=== PATIENT | female | born 1975 | race Caucasian/White ===

== ENCOUNTER 2023-08-03 18:36 | Emergency (ER) | payer OTHER ==
[~2023-08-03] VITALS: Ht 162.6 cm; Wt 86.0 kg
[2023-08-03] MEDS ORDERED: HYDR50TA70 (18:54)
[2023-08-03] MEDS ORDERED: PANT40TA29 (18:54)
[2023-08-03] MEDS ORDERED: CETI-24 (18:54)
[2023-08-03] MEDS ORDERED: ONDA4TAB6 (18:54)
[2023-08-03] MEDS ORDERED: DICY20TA20 (18:54)
[2023-08-03] MEDS ORDERED: TRAM50TA2 (18:54)
[2023-08-03 20:21] LABS: BASO # 0.1 10^3/uL (0.0-0.2); BASO % 0.8 % (0.0-1.0); EOS # 0.4 10^3/uL (0.0-0.5); EOS % 5.6 % (0.0-3.0); HEMATOCRIT 38.4 % (36.0-47.0); HEMOGLOBIN 13.1 g/dl (12.0-15.5); LYMPH # 2.6 10^3/uL (1.5-5.0); LYMPH % 41.3 % (24.0-44.0); MEAN CORPUSCULAR HEMOGLOBIN 29.4 pg (27.0-33.0); MEAN CORPUSCULAR HGB CONC 34.1 g/dl (32.0-36.5); MEAN CORPUSCULAR VOLUME 86.1 fl (80.0-96.0); MONO # 0.4 10^3/uL (0.0-0.8); MONO % 6.8 % (2.0-8.0); NEUTROPHILS # 2.8 10^3/uL (1.5-8.5); NEUTROPHILS % 45.3 % (36.0-66.0); PLATELET COUNT, AUTOMATED 224 10^3/uL (150-450); RED BLOOD COUNT 4.46 10^6/uL (4.00-5.40); WHITE BLOOD COUNT 6.2 10^3/uL (4.0-10.0)
[2023-08-03] MEDS ORDERED: ISOVUE-370 76% 100ML VIAL As Ordered ONE (20:32)
[2023-08-03 20:33] LABS: INR 1.11; PARTIAL THROMBOPLASTIN TIME 33.4 SECONDS (24.8-34.2)
[2023-08-03] MEDS ORDERED: NS 1,000 ML IV SCH (20:40)
[2023-08-03 20:45] LABS: CK-MB VALUE MASS < 1.0 NG/ML (<3.6)
[2023-08-03 20:46] LABS: ALBUMIN 3.9 G/DL (3.2-5.2); BILIRUBIN,DIRECT 0.2 MG/DL (<0.4); BILIRUBIN,TOTAL 0.7 MG/DL (0.3-1.2); RSV AMPLIFICATION NEGATIVE (NEGATIVE); TOTAL PROTEIN 6.6 G/DL (5.7-8.2)
[2023-08-03 20:47] LABS: BLOOD UREA NITROGEN 6 MG/DL (9-23); CALCIUM LEVEL 9.5 MG/DL (8.5-10.1); CARBON DIOXIDE LEVEL 26 MMOL/L (20-31); CHLORIDE LEVEL 109 MMOL/L (98-107); CREATININE FOR GFR 0.69 MG/DL (0.55-1.30); GLOMERULAR FILTRATION RATE > 60.0 (>58); GLUCOSE, FASTING 83 MG/DL (60-100); POTASSIUM SERUM 3.4 MMOL/L (3.5-5.1); SODIUM LEVEL 146 MMOL/L (136-145)
[2023-08-03 20:48] LABS: CPK CREATINE PHOSPHOKINASE 58 U/L (34-145); MB/CK RELATIVE INDEX 1.72 (< OR =4)
[2023-08-03] MEDS ORDERED: POTASSIUM CHLORIDE 10MEQ SR TABLET PO ONE (21:05)
[2023-08-03] MEDS ORDERED: ONDANSETRON 4MG 2ML VIAL IV ONE (21:55)
[2023-08-03] MEDS ORDERED: ONDANSETRON 4MG 2ML VIAL As Ordered ONE (21:56)
[2023-08-03 22:16] LABS: CK-MB VALUE MASS < 1.0 NG/ML (<3.6)
[2023-08-03 22:20] LABS: CPK CREATINE PHOSPHOKINASE 56 U/L (34-145); MB/CK RELATIVE INDEX 1.78 (< OR =4)
[2023-08-03 22:21] VITALS: BP 144/70; TEMP 98.1; O2SAT 99
== END 2023-08-03 22:58 | disposition home or self-care (01) ==
LOC: M ED 18:36
DX: R53.1 Weakness (principal); Z87.891 Personal history of nicotine dependence; R00.1 Bradycardia, unspecified; Z88.1 Allergy status to other antibiotic agents; Z91.02 Food additives allergy status
CPT/HCPCS: 71045; 74177; 80047; 80048; 80076; 81001; 82550; 82553; 83605; 83690; 85025; 85610; 85730; 86850; 86870; 86900; 86901; 87631; 93005; 93041; 96361; 96374; 99285; J2405; Q9967

== ENCOUNTER → 2024-02-12 | Outpatient (REF) | payer OTHER, MEDICAID ==
[~2024-02-12] MED LIST: CETI-24; DICY20TA20; HYDR50TA70; ONDA-282; PANT40TA29; TRAM50TA2
== END ==
LOC: M SFHCADAM 11:26
PROVIDERS: ATTEND Nurse Practitioner Family
DX: Z53.9 Procedure and treatment not carried out, unspecified reason (principal); R21 Rash and other nonspecific skin eruption